=== PATIENT | male | born 1980 | race African-American/Black ===

== ENCOUNTER → 2016-09-06 | Outpatient (CLI) | payer OTHER ==
[~2016-09-06] MED LIST: Z.0.NO CURRENT MEDS
--- NOTE | 2016-09-06 17:10 | RADRPT ---
EXAM DATE/TIME: 09/06/2016 14:34 [place] COMPARISON: No previous studies available for comparison. INDICATIONS : Evaluate for splenomegaly. MEDICAL HISTORY : None. SURGICAL HISTORY : Facial plate surgery 1998. ENCOUNTER: Initial ACUITY: 1 day PAIN SCORE: 0/10 LOCATION: Left flank MEASUREMENTS: SPLEEN: 10.6 cm length FINDINGS: Ultrasound examination of the left upper quadrant was performed. This demonstrates a normal-appearing spleen with uniform echotexture measuring up to 9.8 cm in length. There is normal splenic vascularit y. No significant free fluid is noted in the visualized portions of the left upper quadrant. Limited views of the left kidney demonstrate no gross abnormality. CONCLUSION: 1. Normal appearing spleen without evidence for splenomegaly as questioned. Melvin Blakely MD on September 06, 2016 at 17:06 Board Certified Radiologist. This report was verified electronically.
== END ==
LOC: HRAD 14:05
DX: R16.1 Splenomegaly, not elsewhere classified (principal)
CPT/HCPCS: 76770